=== PATIENT | female | born 1980 | race Two or more races ===

== ENCOUNTER 2023-07-01 15:30 | Outpatient (CLI) | payer OTHER | END 2023-07-01 15:34 | disposition home or self-care (01) | LOC: SONOGRAMA 15:30 | PROVIDERS: ATTEND Pathology Anatomic Pathology & Clinical Pathology | DX: E04.2 Nontoxic multinodular goiter (principal); D44.0 Neoplasm of uncertain behavior of thyroid gland; D34 Benign neoplasm of thyroid gland ==

== ENCOUNTER 2024-06-19 14:09 | Outpatient (CLI) | payer OTHER | END 2024-06-19 14:11 | disposition home or self-care (01) | LOC: SONOGRAMA 14:09 | PROVIDERS: ATTEND Pathology Anatomic Pathology & Clinical Pathology | DX: E04.2 Nontoxic multinodular goiter (principal); D34 Benign neoplasm of thyroid gland ==